=== PATIENT | female | born 1985 | race Caucasian/White ===

== ENCOUNTER 2016-09-28 02:00 | Inpatient (IN) | payer OTHER ==
[~2016-09-28] VITALS: Ht 167.6 cm; Wt 89.1 kg
[~2016-09-28 02:00] MED LIST: PRENAT PO
[2016-09-28 02:10] VITALS: BP 110/66; PULSE 93; RESP 18; Ht 167.6 cm; Wt 89.1 kg
--- NOTE | 2016-09-28 04:30 | RADRPT ---
PROCEDURE: Biophysical profile. CLINICAL INDICATION: Pelvic pain. TECHNIQUE: Multiple sonographic images of the pelvis were obtained with transabdominal technique. COMPARISON: No prior studies are available for comparison. FINDINGS: There is a single living intrauterine gestation with the fetus in a vertex position. The placenta i s anterior in location, grade II to III. heart tones of 134 beats per minute are identified. There is low normal amniotic fluid volume with an SHANDA of 9.1 cm. breathing movements = 2 Gross body movements = 2 tone = 2 Qualitative AFV = 2 IMPRESSION: Biophysical profile 8 out of 8. Low normal SHANDA of 9.1 cm. .Roman Birch MD, Date Time Electronically viewed and signed by .Roman Birch MD, on 09/28/2016 04:30 .T/
[2016-09-28] MEDS ORDERED: METHYLERGONOVINE 0.2 MG INJ IM PRN (05:00)
[2016-09-28] MEDS ORDERED: MISOPROSTOL 200 MCG TAB PR PRN (05:00)
[2016-09-28] MEDS ORDERED: LIDOCAINE 1% (MPF) 30 ML INJ INJ PRN (05:00)
[2016-09-28] MEDS ORDERED: ACETAMINOPHEN/CODEINE #3 TAB PO PRN (05:00)
[2016-09-28] MEDS ORDERED: IBUPROFEN 600 MG TAB PO PRN (05:00)
[2016-09-28] MEDS ORDERED: OXYTOCIN 30 UNITS/LR 500 ML IV SCH ×3 (05:00→14:30)
[2016-09-28] MEDS ORDERED: LACTATED RINGER'S 1,000 ML IV PRN (05:00)
[2016-09-28] MEDS ORDERED: CARBOPROST 250 MCG INJ IM PRN (05:00)
[2016-09-28] MEDS ORDERED: BUTORPHANOL 2 MG INJ IV PRN (05:00)
[2016-09-28] MEDS ORDERED: OXYTOCIN 30 UNITS/LR 500 ML IV PRN (05:00)
[2016-09-28] MEDS ORDERED: AMPICILLIN 2 GM/NS (PMX) 100 ML IV ONE (05:30)
--- NOTE | 2016-09-28 05:40 | TRIAGE ---
OB Triage Datetime Report Generated by CPN: 09/28/2016 05:40 Datetime: 09/28/2016 05:09 Stage of : Labor Assessment Type: Admission Assessment Vaginal Bleeding: None Maternal Assessment Level of Consciousness: Fully Conscious DTR's/Clonus: DTRs 2+; No Clonus Headache: Denies Blurred Vision: No Respiratory Effort: Unlabored; Regular Rhythm; Equal Expansion Breath Sounds, Left: Clear and Equal Breath Sounds, Right: Clear and Equal Nausea/Vomiting: Denies RUQ Epigastric Pain: Denies Lower Extremities Edema: None Degree: None Upper Extremities Edema: None Degree: None Facial Edema: None Temperature Route: Oral Fall Risk Assessment History of Falling: (0) No Secondary Diagnosis: (0) No Ambulatory Aid: (0) Bedrest/Nurse Assist IV Therapy: (0) No Gait: (0) Normal/Bedrest/Immobile Mental Status: (0) Oriented to Own Ability Fall Score: 0 Fall Risk Score Definition: No Risk: No action required Monitor Mode: External Monitor Mode: External US Pain Assessment Pain Scale: 4 Pain Presence: Intermittent Pain Type: Contraction Pain Location: Abdomen Pain Relief Measures: Comfort Measures Datetime: 09/28/2016 04:50 Time of Arrival: 09/28/2016 04:50 EGA: 37.0 Arrived By: Transfer Arrived From: OB TRIAGE Datetime: 09/28/2016 04:49 Vaginal Exam Dilatation (cms): 3.0 Effacement (%): 60 Station: -3 Exam By: Colette PERRY RN Vaginal Bleeding: None Cervix, Consistency: Soft Cervix, Position: Posterior Presentation 'A': Cephalic Datetime: 09/28/2016 04:33 Stage of : OB Triage Monitor Mode: External US Pain Assessment Pain Scale: 4 Pain Presence: Intermittent Pain Type: Contraction Pain Location: Abdomen Pain Relief Measures: Comfort Measures Datetime: 09/28/2016 02:41 Monitor Mode: Palpation Datetime: 09/28/2016 02:40 Vaginal Exam Dilatation (cms): 1.0 Effacement (%): 40 Station: -4 Exam By: Colette PERRY RN Vaginal Bleeding: None Cervix, Consistency: Soft Cervix, Position: Posterior Datetime: 09/28/2016 02:38 Labor Evaluation Frequency: X1 Monitor Mode: External Duration (sec)2399: 50 Resting Tone [place]: Relaxed Heart Rate FHR Baseline Rate: 135 Monitor Mode: External US Variability: Moderate 6-25 bpm Accelerations: 15X15 Datetime: 09/28/2016 02:16 Time of Arrival: 09/28/2016 02:00 EGA: 37.0 Arrived By: Wheelchair Arrived From: Home Chief Complaint: CONTRACTIONS SINCE 0000 Movement: Present Contractions: Irregular Contractions: Q5-10MINUTES Rupture of Membranes: Denies Vaginal Bleeding: None Vaginal Discharge: Denies Recent Sexual Intercouse: Denies Abdominal Trauma: Not Applicable Patient Complaints: Contractions Time Provider Notified: 09/28/2016 02:42 Provider Notified: CALIN Datetime: 09/28/2016 02:10 Stage of : OB Triage Assessment Type: Triage Maternal Assessment Level of Consciousness: Fully Conscious DTR's/Clonus: DTRs 2+; No Clonus Headache: Denies Blurred Vision: No Respiratory Effort: Unlabored; Regular Rhythm; Equal Expansion Breath Sounds, Left: Clear and Equal Breath Sounds, Right: Clear and Equal Nausea/Vomiting: Denies RUQ Epigastric Pain: Denies Lower Extremities Edema: None Degree: None Upper Extremities Edema: None Degree: None Facial Edema: None Temperature Route: Oral Fall Risk Assessment History of Falling: (0) No Secondary Diagnosis: (0) No Ambulatory Aid: (0) Bedrest/Nurse Assist IV Therapy: (0) No Gait: (0) Normal/Bedrest/Immobile Mental Status: (0) Oriented to Own Ability Fall Score: 0 Fall Risk Score Definition: No Risk: No action required Pain Assessment Pain Scale: 5 Pain Presence: Intermittent Pain Type: Contraction Pain Location: Abdomen Pain Relief Measures: Comfort Measures Datetime: 09/28/2016 02:08 Monitor Mode: Palpation Monitor Mode: External US
[2016-09-28 05:43] LABS: ADD SCAN DIFF NO
[2016-09-28 05:47] LABS: BASOPHILS % 0.3 % (0.0-2.0); EOSINOPHILS # 0.1 10^3/ul (0.0-0.5); EOSINOPHILS % 0.9 % (0.0-7.0); HEMATOCRIT 39.6 % (37.0-47.0); HEMOGLOBIN 13.2 g/dl (12.0-16.0); LYMPHOCYTES # 1.6 10^3/ul (0.8-2.9); LYMPHOCYTES % 16.4 % (15.0-51.0); MEAN CORPUSCULAR HEMOGLOBIN 29.9 pg (29.0-33.0); MEAN CORPUSCULAR HGB CONC 33.3 g/dl (32.0-37.0); MEAN CORPUSCULAR VOLUME 89.8 fl (82.0-101.0); MEAN PLATELET VOLUME 12.9 fl (7.4-10.4); MONOCYTE # 0.7 10^3/ul (0.3-0.9); MONOCYTES % 7.1 % (0.0-11.0); NEUTROPHILS % 72.5 % (39.0-77.0); PLATELET COUNT 126 10^3/UL (140-415); RED BLOOD COUNT 4.41 10^6/ul (4.20-5.40); RED CELL DISTRIBUTION WIDTH 13.4 % (11.5-14.5); WHITE BLOOD COUNT 9.7 10^3/ul (4.8-10.8)
[2016-09-28 06:06] LABS: INR 0.88; PROTIME 11.9 Sec (12.2-14.2); PT RATIO 0.9
[2016-09-28 06:07] LABS: PARTIAL THROMBOPLASTIN TIME 27.5 Sec (25.0-35.0)
[2016-09-28] MEDS: LACTATED RINGER'S 1,000 ML IV SCH ×3 (06:11→17:05)
[2016-09-28] MEDS ORDERED: FENTAnyl 2MCG/ML-ROPIV 0.2% 100 ML ONE (07:28)
[2016-09-28] MEDS ORDERED: FENTAnyl 2MCG/ML-ROPIV 0.2% 100 ML BAG EPI SCH (08:00)
[2016-09-28] MEDS ORDERED: NALOXONE (0.4 MG/ML) INJ IV PRN (08:00)
[2016-09-28] MEDS ORDERED: HYDROmorphONE 1 MG/ML SYG IV PRN ×2 (08:00)
[2016-09-28] MEDS ORDERED: DIPHENHYDRAMINE 50 MG INJ IV PRN (08:00)
[2016-09-28] MEDS ORDERED: ZOLPIDEM 5 MG TAB PO PRN (08:00)
[2016-09-28] MEDS ORDERED: ONDANSETRON 4 MG INJ IV PRN (08:00)
[2016-09-28] MEDS: AMPICILLIN 1 GM/NS (PMX) 50 ML IV SCH ×4 (09:26→22:00)
[2016-09-28] MEDS: LACTATED RINGER'S 1,000 ML IV* SCH (23:33)
--- NOTE | 2016-09-28 23:33 | LDN ---
Date/Time of Note Date/Time of Note DATE: 09/28/16 TIME: 23:31 Delivery Summary Patient had been managed during her labor by Dr. Crawford. I was called and the patient was complete and pushing for vaginal delivery Placenta Delivered: Spontaneously Meconium: none Episiotomy: No Perineal laceration: 2 Laceration repair: Second-degree fourchette laceration repaired with 3-0 chromic Anesthesia type: Epidural Sponge & Needle done & correct: Yes All needle counts correct: Yes Any foreign bodies felt in the: No Problems: Delivery Information Sex Infant Sex: male Apgars 1 Minute: 9 5 Minute: 9 Suctioning Nose & mouth suctioned at ashley: Yes Delee suction performed: Yes Umbilical Cord Umbilical cord with: 3 Vessels Cord presentations: nuchal cord Cord Blood was obtained: Yes ELBA KARIMI MD Sep 28, 2016 23:33
[2016-09-29] MEDS ORDERED: ZOLPIDEM 5 MG TAB PO PRN
[2016-09-29] MEDS ORDERED: OXYTOCIN 30 UNITS/LR 500 ML IV PRN
[2016-09-29] MEDS ORDERED: ACETAMINOPHEN 325 MG TAB PO PRN
[2016-09-29] MEDS ORDERED: LANOLIN 7 GM TUBE TOP PRN
[2016-09-29] MEDS ORDERED: ACETAMINOPHEN/CODEINE #3 TAB PO PRN
[2016-09-29] MEDS ORDERED: ONDANSETRON 4 MG INJ IV PRN
[2016-09-29] MEDS ORDERED: morphine 2 MG INJ IV PRN
[2016-09-29] MEDS ORDERED: MISOPROSTOL 200 MCG TAB PR PRN
[2016-09-29] MEDS ORDERED: DIPHENHYDRAMINE 25 MG CAP PO PRN
[2016-09-29] MEDS ORDERED: WITCH HAZEL/GLYCERIN PAD PR PRN
[2016-09-29] MEDS ORDERED: CARBOPROST 250 MCG INJ IM PRN
[2016-09-29 01:00] VITALS: BP 125/66; PULSE 94; RESP 20
[2016-09-29 04:10] VITALS: BP 112/60; PULSE 83; RESP 20
[2016-09-29] MEDS: IBUPROFEN 600 MG TAB PO SCH ×5 (05:46→23:24)
[2016-09-29 07:30] VITALS: BP 108/58; PULSE 80; RESP 18
[2016-09-29] MEDS: LACTATED RINGER'S 1,000 ML IV* SCH (07:33)
[2016-09-29] MEDS: SENNA/DOCUSATE NA (8.6MG/50MG) TAB PO SCH ×3 (08:54→20:56)
[2016-09-29] MEDS: MULTIVIT/MIN/FOLATE/IRON/PREN TAB PO SCH (08:54)
[2016-09-29 13:13] LABS: ADD SCAN DIFF NO
[2016-09-29 15:53] VITALS: BP 113/61; PULSE 80; RESP 18
[2016-09-29 18:04] LABS: BASOPHILS % 0.2 % (0.0-2.0); EOSINOPHILS # 0.1 10^3/ul (0.0-0.5); EOSINOPHILS % 0.9 % (0.0-7.0); HEMATOCRIT 38.2 % (37.0-47.0); HEMOGLOBIN 12.4 g/dl (12.0-16.0); LYMPHOCYTES # 1.4 10^3/ul (0.8-2.9); LYMPHOCYTES % 13.7 % (15.0-51.0); MEAN CORPUSCULAR HGB CONC 32.5 g/dl (32.0-37.0); MEAN CORPUSCULAR VOLUME 92.3 fl (82.0-101.0); MEAN PLATELET VOLUME 12.5 fl (7.4-10.4); MONOCYTE # 0.8 10^3/ul (0.3-0.9); MONOCYTES % 8.1 % (0.0-11.0); NEUTROPHIL # 7.8 10^3/ul (1.6-7.5); NEUTROPHILS % 75.8 % (39.0-77.0); PLATELET COUNT 110 10^3/UL (140-415); RED BLOOD COUNT 4.14 10^6/ul (4.20-5.40); RED CELL DISTRIBUTION WIDTH 13.5 % (11.5-14.5); WHITE BLOOD COUNT 10.2 10^3/ul (4.8-10.8)
[2016-09-29 19:45] VITALS: BP 111/77; PULSE 76; RESP 20
[2016-09-30 03:10] VITALS: BP 125/77; PULSE 66; RESP 18
[2016-09-30] MEDS: IBUPROFEN 600 MG TAB PO SCH ×2 (05:28→12:05)
[2016-09-30 07:30] VITALS: BP 121/77; PULSE 81; RESP 16
[2016-09-30] MEDS ORDERED: MEASLES,MUMPS,RUBELLA VACCINE INJ SC* ONE (09:00)
[2016-09-30] MEDS: MULTIVIT/MIN/FOLATE/IRON/PREN TAB PO SCH (09:14)
[2016-09-30] MEDS: SENNA/DOCUSATE NA (8.6MG/50MG) TAB PO SCH (09:14)
--- NOTE | 2016-09-30 11:55 | PN ---
Date/Time of Note Date/Time of Note DATE: 09/30/16 TIME: 11:53 OB Subjective Subjective Subjective Patient without complaints. Ready to go home. OB Objective Objective Objective AFVSS Gen: NAD Abd: FF OB Assessment/Plan Other Assessment: PPD2 Other plan: Discharge home. Pelvic rest. F/u in 3-6 weeks. SIDRA PALOMARES Sep 30, 2016 11:55
== END 2016-09-30 12:35 | disposition home or self-care (01) | DRG 775 ==
LOC: OBT 02:00 → L-D 02:00 → OBT 04:55 → L-D 14:29 → PP1 09-29 00:53
PROVIDERS: ADMIT Obstetrics & Gynecology; ATTEND Obstetrics & Gynecology
PROC: 10E0XZZ Delivery of Products of Conception, External Approach (ICD-10-PCS; principal; 2016-09-28)
PROC: 0KQM0ZZ Repair Perineum Muscle, Open Approach (ICD-10-PCS; 2016-09-28)
DX: O70.1 Second degree perineal laceration during delivery (principal); Z37.0 Single live birth; O69.81X0 Labor and delivery complicated by cord around neck, without compression, not applicable or unspecified; Z3A.37 37 weeks gestation of pregnancy
CPT/HCPCS: 36415; 62319; 76818; 85025; 85610; 85730; 86592; 86900; 86901; 87340; G0463; J0290; J2590; J3010; J7120